=== PATIENT | female | born 2000 | race American Indian/Alaskan Native ===

== ENCOUNTER 2021-10-17 16:51 | Emergency (ER) | payer MEDICAID ==
[2021-10-17 19:16] LABS: Blood Urea Nitrogen 12 mg/dL (7-17); Calcium 9.1 mg/dL (8.4-10.2); Hemolysis Index 0
[2021-10-17 19:18] LABS: BUN/Creatinine Ratio 17
[2021-10-17 19:24] LABS: Amphetamine Screen,Urine Negative; Cannabinoid Screen,Urine Negative; Cocaine Screen,Urine Negative; Methadone Screen,Urine Negative; Opiate Screen,Urine Negative
[2021-10-17 19:41] LABS: Benzodiazepines Screen,Urine Positive
[2021-10-17 19:44] LABS: Basophils # (Auto) 0.1 K/mm3 (0.0-0.1); Eosinophils % (Auto) 0.1 % (0.0-4.3); Hematocrit 31.6 % (30.3-42.9); Hemoglobin 9.6 gm/dl (10.1-14.3); Lymphocytes # (Auto) 1.1 K/mm3 (1.2-5.4); Lymphocytes % (Auto) 14.4 % (13.4-35.0); Mean Corpuscular HGB Conc 30 % (30-34); Mean Corpuscular Volume 71 fl (79-97); Monocytes # (Auto) 0.2 K/mm3 (0.0-0.8); Monocytes % (Auto) 2.9 % (0.0-7.3); Platelet Count 473 K/mm3 (140-440); Red Blood Count 4.45 M/mm3 (3.65-5.03); Red Cell Distribution Width 18.5 % (13.2-15.2)
[2021-10-17 20:01] LABS: Bilirubin,Urine NEG (Negative); Blood,Urine NEG (Negative); Color,Urine Yellow (Yellow); Urobilinogen,Urine < 2.0 mg/dL (<2.0); WBC,Urine < 1.0 /HPF (0.0-6.0)
[2021-10-17 20:12] LABS: RBC,Urine < 1.0 /HPF (0.0-6.0)
--- NOTE | 2021-10-17 20:22 | Emergency Department Report ---
ED Psych HPI - General Chief Complaint: Psych Stated Complaint: PSYCH EVALUATION Time Seen by Provider: 10/17/21 18:07 Source: patient, EMS Mode of arrival: Stretcher - History of Present Illness Initial Comments: RESP DISTRESS AND REPORTS BEING 11 MONTHS . PSYCH EVALUATION MD Complaint: other (delusion ) -: Gradual, unknown Associated Psychiatric Symptoms: delusions History of same: No Quality: constant Worsens With: none - Related Data Allergies Allergy/AdvReac Type Severity Reaction Status Date / Time No Known Allergies Allergy Unverified 10/17/21 20:29 ED Review of Systems ROS: Stated complaint: PSYCH EVALUATION Other details as noted in HPI Constitutional: denies: chills, fever Eyes: denies: eye pain, eye discharge, vision change ENT: denies: ear pain, throat pain Respiratory: denies: cough, shortness of breath, wheezing Cardiovascular: denies: chest pain, palpitations Endocrine: no symptoms reported Gastrointestinal: denies: abdominal pain, nausea, diarrhea Genitourinary: denies: urgency, dysuria, discharge Musculoskeletal: denies: back pain, joint swelling, arthralgia Skin: denies: rash, lesions Neurological: denies: headache, weakness, paresthesias Psychiatric: denies: anxiety, depression Hematological/Lymphatic: denies: easy bleeding, easy bruising ED Past Medical Hx - Past Medical History Previous Medical History?: No Hx Hypertension: No ED Physical Exam - General Limitations: No Limitations General appearance: alert, anxious - Head Head exam: Present: atraumatic, normocephalic - Eye Eye exam: Present: normal appearance - ENT ENT exam: Present: mucous membranes moist - Neck Neck exam: Present: normal inspection - Respiratory Respiratory exam: Present: normal lung sounds bilaterally. Absent: respiratory distress - Cardiovascular Cardiovascular Exam: Present: regular rate, normal rhythm. Absent: systolic murmur, diastolic murmur, rubs, gallop - GI/Abdominal GI/Abdominal exam: Present: soft, normal bowel sounds - Extremities Exam Extremities exam: Present: normal inspection - Back Exam Back exam: Present: normal inspection - Neurological Exam Neurological exam: Present: alert, oriented X3 - Expanded Psychiatric Exam Expanded Focused psych exam: Present: delusional - Skin Skin exam: Present: warm, dry, intact, normal color. Absent: rash ED Course Vital Signs 10/17/21 10/17/21 10/17/21 16:54 21:01 21:05 Temperature 98 F 98.4 F Pulse Rate 94 H 112 H Respiratory 18 20 18 Rate Blood Pressure 123/84 126/87 [Left] O2 Sat by Pulse 98 100 100 Oximetry 10/18/21 10/19/21 10/19/21 20:12 02:27 11:15 Temperature 98.9 F 98.4 F 97.8 F Pulse Rate 105 H 90 90 Respiratory 18 18 18 Rate Blood Pressure 111/73 114/74 109/63 [Left] O2 Sat by Pulse 98 100 98 Oximetry 10/19/21 20:21 Temperature 98.6 F Pulse Rate 76 Respiratory 18 Rate Blood Pressure 120/68 [Left] O2 Sat by Pulse 98 Oximetry ED Medical Decision Making - Lab Data Result diagrams: 10/17/21 18:36 10/17/21 18:36 Critical care attestation.: If time is entered above; I have spent that time in minutes in the direct care of this critically ill patient, excluding procedure time. ED Disposition Clinical Impression: Delusions Disposition: [address] [place] [address] Is pt being admited?: No Does the pt Need Aspirin: No Condition: Stable Additional Instructions: Professional and Agency Contacts To help [facility] (31/03) [place] Crisis Line: Suicide Prevention Line: Crisis Text Line: Text START to 078616 Emergency: 911 Outpatient COMMUNITY Behavioral Health Resources: [place]: [facility] [address] [place], [place] [address] [facility] [address] [place] [address] Friday thru Friday - 8am - 5pm Call to schedule an assessment for mental health and substance abuse programs [facility] Address: [address] [place] [address] Friday thru Friday- 7am-2pm [facility] Address: [address] [place] [address] Friday thrfriday: 8:30AM-5PM Referrals: PRIMARY CAREMD [Primary Care Provider] - 3-5 Days
[2021-10-18 01:07] LABS: HCG Qualitative,Urine Negative (Negative)
--- NOTE | 2021-10-18 09:43 | Consultation ---
History of Present Illness - Reason for Consult Consult date: 10/18/21 Reason for consult: Mental health evaluation - History of Present Psychiatric Illness The patient is a 21 year old female with unknown psychiatric history who presents to the ED for mental health evaluation. In my encounter with the patient, she presents with disorganized thoughts, delusions and tangential. The patient reports that she is 12 months " I want a C- section today, I pee all day." She denies any current suicidal/homicidal ideation and denies hallucinations. PAST PSYCHIATRIC HISTORY Diagnoses: Denies Suicide attempts or Self-harm behavior: Denies Prior psychiatric hospitalizations: Denies Substance Abuse history: Denies Previous psychiatric medications tried: Denies Outpatient treatment: Denies PAST MEDICAL HISTORY: Family Psychiatric History: Not available SOCIAL HISTORY Marital Status: Single Living Arrangements: Lives with grandmother Employment Status:Unemployed Access to guns/weapons: None reported Education:12th History of Abuse: None reported Legal History: None reported REVIEW OF SYSTEMS Constitutional: Negative for weight loss ENT: Negative for stridor Respiratory: Negative for cough or hemoptysis All other systems reviewed and are negative MENTAL STATUS EXAMINATION General Appearance and Behavior: Age appropriate, good hygiene, wearing appropriate clothes, good eye contact, cooperative polite with questioning. Cooperation: Participating Psychomotor Behavior: Normal Mood: "ok" Affect and affective range: Incongruent with mood Thought Process: Tangential Thought Content: disorganized Speech: Normal volume, Regular rate and rhythm Intellectual Functioning: Average Suicidal Ideation: Denies Homicidal Ideation: Denies Hallucinations: Denies Impulse Control: Unimpaired Insight and Judgment: Limited insight and judgment Memory: Normal Attention: Divided Orientation: Alert, oriented Assessment and Plan (1) Delirium (2) Current Visit: Yes Status: Acute RECOMMENDATIONS 1013 continue home meds. Start Zyprexa 5mg po BID Risks, benefits and alternatives of medications discussed with the patient, questions answered and consent obtained from patient. PSYCHOTHERAPY: Supportive psychotherapy provided MEDICAL: Per primary team DELIRIUM PRECAUTIONS: Please re-orient patient frequently, keep lights on during the day, and minimize benzodiazepines and opiates as these medications could worsen patient's confusion. HEALTH INFORMATION MANAGEMENT DIRECTOR: Per medical team DISPOSITION: Recommend acute inpatient psychiatric hospitalization at this time. FOLLOW-UP: Will follow. Thank you for the consult. Please contact with any questions and/or concerns. Medications and Allergies Allergies Allergy/AdvReac Type Severity Reaction Status Date / Time No Known Allergies Allergy Unverified 10/17/21 20:29 Mental Status Exam - Vital signs Last Vital Signs Temp 98.4 F 10/17/21 21:05 Pulse 112 H 10/17/21 21:05 Resp 18 10/17/21 21:05 BP 126/87 10/17/21 21:05 Pulse Ox 100 10/17/21 21:05 Results Result Diagrams: 10/17/21 18:36 10/17/21 18:36 Abnormal lab results 10/17/21 10/17/21 10/17/21 Range/Units 18:36 18:36 18:36 Hgb 9.6 L (10.1-14.3) gm/dl MCV 71 L (79-97) fl MCH 22 L (28-32) pg RDW 18.5 H (13.2-15.2) % Plt Count 473 H (140-440) K/mm3 Lymph # (Auto) 1.1 L (1.2-5.4) K/mm3 Seg Neutrophils % 81.6 H (40.0-70.0) % Sodium 135 L (137-145) mmol/L Potassium 3.5 L (3.6-5.0) mmol/L Carbon Dioxide 20 L (22-30) mmol/L Glucose 102 H (65-100) mg/dL Salicylates < 0.3 L (2.8-20.0) mg/dL Acetaminophen (10.0-30.0) ug/mL 10/17/21 Range/Units 18:36 Hgb (10.1-14.3) gm/dl MCV (79-97) fl MCH (28-32) pg RDW (13.2-15.2) % Plt Count (140-440) K/mm3 Lymph # (Auto) (1.2-5.4) K/mm3 Seg Neutrophils % (40.0-70.0) % Sodium (137-145) mmol/L Potassium (3.6-5.0) mmol/L Carbon Dioxide (22-30) mmol/L Glucose (65-100) mg/dL Salicylates (2.8-20.0) mg/dL Acetaminophen 5.0 L (10.0-30.0) ug/mL All other labs normal.
--- NOTE | 2021-10-18 11:37 | Event Note ---
Awaiting placement by psychiatric team. Patient has a positive COVID-19 test without symptoms.
--- NOTE | 2021-10-19 09:33 | Progress Note ---
Subjective - Reason for Consult Consult date: 10/19/21 Reason for consult: Delusional - Chief Complaint Chief complaint: The patient was seen today. She is calm, and cooperative. She says she came to the hospital because she suffers from anxiety and asthma. She says "I couldn't catch my breath mainly from anxiety but my asthma has been flaring up too." She says "I couldn't calm myself down." The patient says "I'm also 7 months and I need to have a today." The patient denies SI/HI or hallucinations of any kind. She says "can I have a room upstairs to have my baby?" REVIEW OF SYSTEMS Constitutional: Negative for weight loss ENT: Negative for stridor Respiratory: Negative for cough or hemoptysis All other systems reviewed and are negative MENTAL STATUS EXAMINATION General Appearance and Behavior: Age appropriate, good hygiene, wearing appropriate clothes, good eye contact, cooperative polite with questioning. Cooperation: Participating Psychomotor Behavior: Normal Mood: "ok" Affect and affective range: Incongruent with mood Thought Process: illogical Thought Content: delusions Speech: Normal volume, Regular rate and rhythm Intellectual Functioning: Average Suicidal Ideation: Denies Homicidal Ideation: Denies Hallucinations: Denies Impulse Control: Unimpaired Insight and Judgment: Limited insight and judgment Memory:Limited Attention: Divided Orientation: Alert, oriented Assessment and Plan (1) Delusional Disorder (2) Generalized Anxiety Disorder RECOMMENDATIONS 1013 Increase Olanzapine 7.5mg po BID Start Vistaril 25mg po BID Risks, benefits and alternatives of medications discussed with the patient, questions answered and consent obtained from patient. PSYCHOTHERAPY: Supportive psychotherapy provided MEDICAL: Per primary team DELIRIUM PRECAUTIONS: Please re-orient patient frequently, keep lights on during the day, and minimize benzodiazepines and opiates as these medications could worsen patient's confusion. CUSTOMER ACQUISITION MANAGER: Per medical team DISPOSITION: Recommend acute inpatient psychiatric hospitalization at this time. FOLLOW-UP: Will follow. Thank you for the consult. Please contact with any questions and/or concerns. Mental Status Exam - Vital signs Last Vital Signs Temp 98.4 F 10/19/21 02:27 Pulse 90 10/19/21 02:27 Resp 18 10/19/21 02:27 BP 114/74 10/19/21 02:27 Pulse Ox 100 10/19/21 02:27
[2021-10-19] MEDS: hydrOXYzine PAMOATE 25 MG CAP PO SCH (12:50)
--- NOTE | 2021-10-19 14:48 | Event Note ---
Date: 10/19/21 S: No events reported overnight Vital Signs - 8 hr 10/19/21 11:15 Temperature 97.8 F Pulse Rate 90 Respiratory 18 Rate Blood Pressure 109/63 [Left] O2 Sat by Pulse 98 Oximetry O: Delusional disorder, general anxiety disorder, Covid positive P: Awaiting inpatient psych placement
--- NOTE | 2021-10-20 11:01 | Progress Note ---
Subjective - Reason for Consult Consult date: 10/20/21 Reason for consult: delusional - Chief Complaint Chief complaint: The patient was seen today. She is cooperative. She is upset and asking to go home. The patient denies SI/HI or hallucinations. She does states she is . She says "I'm safe with my grandma." Staff states the patient has been walking around moaning, and holding her back like she's in labor, and asking for an epidural. REVIEW OF SYSTEMS Constitutional: Negative for weight loss ENT: Negative for stridor Respiratory: Negative for cough or hemoptysis All other systems reviewed and are negative MENTAL STATUS EXAMINATION General Appearance and Behavior: Age appropriate, good hygiene, wearing appropriate clothes, good eye contact, cooperative polite with questioning. Cooperation: Participating Psychomotor Behavior: Normal Mood: "ok" Affect and affective range: Incongruent with mood Thought Process: illogical Thought Content: delusions Speech: Normal volume, Regular rate and rhythm Intellectual Functioning: Average Suicidal Ideation: Denies Homicidal Ideation: Denies Hallucinations: Denies Impulse Control: Unimpaired Insight and Judgment: Limited insight and judgment Memory:Limited Attention: Divided Orientation: Alert, oriented Assessment and Plan (1) Delusional Disorder (2) Generalized Anxiety Disorder RECOMMENDATIONS 1013 Increase Olanzapine 10mg po BID Increased Vistaril 50mg po BID Risks, benefits and alternatives of medications discussed with the patient, questions answered and consent obtained from patient. PSYCHOTHERAPY: Supportive psychotherapy provided MEDICAL: Per primary team DELIRIUM PRECAUTIONS: Please re-orient patient frequently, keep lights on during the day, and minimize benzodiazepines and opiates as these medications could worsen patient's confusion. PIPELINE WELDER: Per medical team DISPOSITION: Recommend acute inpatient psychiatric hospitalization at this time. FOLLOW-UP: Will follow. Thank you for the consult. Please contact with any questions and/or concerns. Mental Status Exam - Vital signs Last Vital Signs Temp 98.6 F 10/19/21 20:21 Pulse 76 10/19/21 20:21 Resp 18 10/19/21 20:21 BP 120/68 10/19/21 20:21 Pulse Ox 98 10/19/21 20:21
[2021-10-20] MEDS: hydrOXYzine PAMOATE 25 MG CAP PO SCH (11:16)
--- NOTE | 2021-10-20 11:26 | Event Note ---
Date: 10/20/21 vss , no dstress , still disorganised thinking , assesses by [facility] , continue 1013 and continue meds
[2021-10-20] MEDS ORDERED: hydrOXYzine PAMOATE 25 MG CAP PO SCH (12:00)
[2021-10-21 09:13] VITALS: BP 131/89
--- NOTE | 2021-10-21 11:41 | Event Note ---
Date: 10/21/21 more stable today , denies any SI or HI requets to go home awaiting plcament vss , labs unremarkable
== END 2021-10-22 18:50 ==
LOC: ED 16:51 → EEVIPCON 16:51 → ED 10-20 18:52
DX: O99.511 Diseases of the respiratory system complicating pregnancy, first trimester (principal); Z3A.11 11 weeks gestation of pregnancy; Z20.822 Contact with and (suspected) exposure to COVID-19; Z79.899 Other long term (current) drug therapy
CPT/HCPCS: 80048; 80307; 81001; 81025; 85025; 99285; U0003; 80320; 99284; G0480

== ENCOUNTER 2021-10-20 20:08 | Emergency (ER) | payer MEDICAID ==
--- NOTE | 2021-10-21 09:38 | Progress Note ---
Subjective - Reason for Consult Consult date: 10/21/21 Reason for consult: delusional - Chief Complaint Chief complaint: The patient was seen today. She is irritable. She says she's not doing too well. When asked why, she says "I'm trapped in this room." The patient denies SI/HI or hallucinations, but still has some disorganized thoughts. The nurse says the patient was very disorganized this morning. REVIEW OF SYSTEMS Constitutional: Negative for weight loss ENT: Negative for stridor Respiratory: Negative for cough or hemoptysis All other systems reviewed and are negative MENTAL STATUS EXAMINATION General Appearance and Behavior: Age appropriate, good hygiene, wearing appropriate clothes, good eye contact, cooperative polite with questioning. Cooperation: Participating Psychomotor Behavior: Normal Mood: "ok" Affect and affective range: Incongruent with mood Thought Process: illogical Thought Content: delusions Speech: Normal volume, Regular rate and rhythm Intellectual Functioning: Average Suicidal Ideation: Denies Homicidal Ideation: Denies Hallucinations: Denies Impulse Control: Unimpaired Insight and Judgment: Limited insight and judgment Memory:Limited Attention: Divided Orientation: Alert, oriented Assessment and Plan (1) Delusional Disorder (2) Generalized Anxiety Disorder RECOMMENDATIONS 1013 Olanzapine 10mg po BID Vistaril 50mg po BID Start Prozac 10mg po daily Risks, benefits and alternatives of medications discussed with the patient, questions answered and consent obtained from patient. PSYCHOTHERAPY: Supportive psychotherapy provided MEDICAL: Per primary team DELIRIUM PRECAUTIONS: Please re-orient patient frequently, keep lights on during the day, and minimize benzodiazepines and opiates as these medications could worsen patient's confusion. MANAGER CORPORATE: Per medical team DISPOSITION: Recommend acute inpatient psychiatric hospitalization at this time. FOLLOW-UP: Will follow. Thank you for the consult. Please contact with any questions and/or concerns. Mental Status Exam - Vital signs Last Vital Signs Temp 98.3 F 10/21/21 08:10 Pulse 100 H 10/21/21 08:10 Resp 14 10/21/21 08:10 BP 131/89 10/21/21 08:10 Pulse Ox 99 10/21/21 08:23
[2021-10-21] MEDS: FLUoxetine 10 MG TAB PO SCH (11:03)
[2021-10-22] MEDS ORDERED: ALBUTEROL 2.5 MG/3 ML NEBU IH ONE (03:03)
[2021-10-22] MEDS ORDERED: IPRATROPIUM 0.02% NEBU 2.5 ML IH ONE (03:03)
--- NOTE | 2021-10-22 03:05 | Emergency Department Report ---
Blank Doc - Documentation Documentation: I was called to the room secondary to difficulty breathing. Patient states that she has asthma and was having shortness of breath. She had 2-3 word dyspnea. There was audible wheezing on exam. DuoNeb was ordered. [id number]-I was called to the room as the patient states that she feels like her chest is getting tighter. She is hyperventilating. O2 saturations are 100% on the breathing treatment. She actually has improved air movement. Vistaril was ordered. 0545-after treatments, patient was no longer wheezing. She was no longer anxious after the Vistaril. We are still awaiting psychiatric disposition.
[2021-10-22] MEDS ORDERED: hydrOXYzine HCL 100 MG/2 ML INJ IM ONE (03:35)
[2021-10-22] MEDS: FLUoxetine 10 MG TAB PO SCH (10:04)
--- NOTE | 2021-10-22 11:57 | Progress Note ---
Subjective - Reason for Consult Consult date: 10/22/21 Reason for consult: delusional - Chief Complaint Chief complaint: The patient was seen today. She is calm and cooperative. She says she's doing good. The patient says "I feel better. But my anxiety and asthma get the best of me." I ask the patient about her believing she was , the patient says "I don't feel that way. I just want my anxiety to get better." The patient denies SI/HI or hallucinations of any kind. REVIEW OF SYSTEMS Constitutional: Negative for weight loss ENT: Negative for stridor Respiratory: Negative for cough or hemoptysis All other systems reviewed and are negative MENTAL STATUS EXAMINATION General Appearance and Behavior: Age appropriate, good hygiene, wearing appropriate clothes, good eye contact, cooperative polite with questioning. Cooperation: Participating Psychomotor Behavior: Normal Mood: "good" Affect and affective range: congruent with mood Thought Process: goal directed Thought Content: None Speech: Normal volume, Regular rate and rhythm Intellectual Functioning: Average Suicidal Ideation: Denies Homicidal Ideation: Denies Hallucinations: Denies Impulse Control: Unimpaired Insight and Judgment: Limited insight and judgment Memory:Limited Attention: Divided Orientation: Alert, oriented Assessment and Plan (1) Delusional Disorder (2) Generalized Anxiety Disorder RECOMMENDATIONS d/c 1013 Olanzapine 10mg po BID Vistaril 50mg po BID Prozac 10mg po daily Risks, benefits and alternatives of medications discussed with the patient, questions answered and consent obtained from patient. PSYCHOTHERAPY: Supportive psychotherapy provided MEDICAL: Per primary team DELIRIUM PRECAUTIONS: Please re-orient patient frequently, keep lights on during the day, and minimize benzodiazepines and opiates as these medications could worsen patient's confusion. ELECTRON GUN INSPECTOR: Per medical team DISPOSITION: Recommend acute inpatient psychiatric hospitalization at this time. The patient is now stable enough to be managed from an outpatient basis. The equity director to provide the patient with all necessary outpatient resources. The equity director to further discuss safety plan The patient to follow up with outpatient psych in 7 to 14 days upon discharge FOLLOW-UP: sign off Thank you for the consult. Please contact with any questions and/or concerns. Case staffed with Dr. Lira Mental Status Exam - Vital signs Last Vital Signs Temp 99.0 F 10/21/21 22:23 Pulse 130 H 10/22/21 03:23 Resp 20 10/22/21 03:23 BP 119/77 10/21/21 22:23 Pulse Ox 100 10/22/21 07:00
--- NOTE | 2021-10-22 15:40 | Event Note ---
Date: 10/22/21 Patient has been evaluated by our psychiatric team and advised to discharge patient home and follow-up as an outpatient. Patient denied any suicidal homicidal ideation. No visual or auditory hallucination. Patient is medically and psychiatrically stable for discharge.
[2021-10-22 16:29] VITALS: BP 118/78
== END 2021-10-22 16:25 | disposition home or self-care (01) ==
LOC: ED 20:08
DX: F22 Delusional disorders (principal); R06.02 Shortness of breath; F41.9 Anxiety disorder, unspecified; R06.2 Wheezing
CPT/HCPCS: 94644; 99284; J3410; Q0177; 99283

== ENCOUNTER 2021-10-30 07:20 | Emergency (ER) | payer MEDICAID ==
[2021-10-30 07:24] VITALS: BP 124/84
[2021-10-30] MEDS ORDERED: hydrOXYzine PAMOATE 25 MG CAP PO ONE (07:53)
--- NOTE | 2021-10-30 07:58 | Emergency Department Report ---
ED General Adult HPI - General Chief complaint: Psych Stated complaint: ANXIETY/PSYCH PUI?: No Time Seen by Provider: 10/30/21 07:44 Source: patient, EMS ( EMS documentation not available at time of chart dictation ), RN notes reviewed, old records reviewed Mode of arrival: Ambulatory Limitations: No Limitations - History of Present Illness Initial comments: The patient was evaluated in the emergency department for symptoms described in the history of present illness. He/she was evaluated in the context of the global COVID-19 pandemic, which necessitated consideration that the patient might be at risk for infection with the virus that causes COVID-19. Institutional protocols and algorithms that pertain to the evaluation of patients at risk for COVID-19 are in a state of rapid change based on information released by regulatory bodies including the CDC and federal and state organizations. These policies and algorithms were followed during the patient's care in the emergency department. Please note that these policies, procedures and recommendations changed on a rapid basis. Chief complaint: My anxiety and my wheezing The patient is a 21-year-old female, who presents to the ER today with a complaint of feeling like she is wheezing, and sensation of anxiety. She denies physical pain. She denies homicidality and suicidality. She denies overdose. She denies hallucinations, access to guns or firearms. She reports that she is not . She reports that she graduated from high school, lives at home with family, and does not work currently. She reports that she is from [place]. She denies loss of taste and smell. She denies physical pain at this time. - Related Data Previous Rx's Medication Instructions Recorded Last Taken Type FLUoxetine [PROzac] 10 mg PO QDAY #30 tablet 10/22/21 Unknown Rx OLANZapine [Olanzapine] 10 mg PO BID #60 10/22/21 Unknown Rx hydrOXYzine PAMOATE [Vistaril] 50 mg PO BID PRN #60 capsule 10/22/21 Unknown Rx Albuterol Sulfate [Proair 90 mcg IH Q4HR PRN #2 aer.pow.ba 10/30/21 Unknown Rx Respiclick] Allergies Allergy/AdvReac Type Severity Reaction Status Date / Time No Known Allergies Allergy Verified 10/30/21 07:24 ED Review of Systems ROS: Stated complaint: ANXIETY/PSYCH Other details as noted in HPI Constitutional: denies: fever Respiratory: cough Cardiovascular: denies: chest pain Gastrointestinal: denies: abdominal pain Musculoskeletal: denies: back pain Neurological: denies: weakness Psychiatric: anxiety. denies: auditory hallucinations, visual hallucinations, homicidal thoughts, suicidal thoughts ED Past Medical Hx - Past Medical History Hx Hypertension: No - Social History Smoking Status: Unknown if ever smoked - Medications Home Medications: Home Medications Medication Instructions Recorded Confirmed Last Taken Type FLUoxetine [PROzac] 10 mg PO QDAY #30 tablet 10/22/21 Unknown Rx OLANZapine [Olanzapine] 10 mg PO BID #60 10/22/21 Unknown Rx hydrOXYzine PAMOATE [Vistaril] 50 mg PO BID PRN #60 capsule 10/22/21 Unknown Rx Albuterol Sulfate [Proair 90 mcg IH Q4HR PRN #2 aer.pow.ba 10/30/21 Unknown Rx Respiclick] ED Physical Exam - General Limitations: No Limitations General appearance: alert, anxious - Head Head exam: Present: atraumatic, normocephalic - Eye Eye exam: Present: normal appearance, EOMI. Absent: nystagmus - ENT ENT exam: Present: normal exam, normal orophraynx, mucous membranes moist, normal external ear exam - Neck Neck exam: Present: normal inspection, full ROM. Absent: tenderness, meningismus - Respiratory Respiratory exam: Present: normal lung sounds bilaterally. Absent: respiratory distress, wheezes, rales, rhonchi, stridor, decreased breath sounds - Cardiovascular Cardiovascular Exam: Present: normal rhythm, tachycardia, normal heart sounds. Absent: bradycardia, irregular rhythm, systolic murmur, diastolic murmur, rubs, gallop - GI/Abdominal GI/Abdominal exam: Present: soft. Absent: distended, tenderness, guarding, rebound, rigid, pulsatile mass - Extremities Exam Extremities exam: Present: normal inspection, full ROM, other (2+ pulses noted in the bilateral upper and lower extremities. There is no palpable cord. negative Homans sign. Muscular compartments are soft. The pelvis is stable.). Absent: pedal edema, calf tenderness - Back Exam Back exam: Present: normal inspection, full ROM. Absent: tenderness, CVA tenderness (R), CVA tenderness (L), paraspinal tenderness, vertebral tenderness - Neurological Exam Neurological exam: Present: alert, oriented X3, normal gait, other (No facial droop. Tongue midline. Extraocular movements intact bilaterally. Facial sensation intact to light touch in V1, V2, V3 distribution bilaterally. 5 and a 5 strength in 4 extremities. Sensation intact to light touch in 4 extremities.). Absent: motor sensory deficit - Psychiatric Psychiatric exam: Present: anxious. Absent: homicidal ideation, suicidal ideation - Skin Skin exam: Present: warm, dry, intact, normal color. Absent: rash ED Course Vital Signs 10/30/21 07:21 Temperature 98.4 F Pulse Rate 104 H Respiratory 16 Rate Blood Pressure 124/84 [Left] O2 Sat by Pulse 99 Oximetry ED Medical Decision Making - Lab Data Vital Signs 10/30/21 07:21 Temperature 98.4 F Pulse Rate 104 H Respiratory 16 Rate Blood Pressure 124/84 [Left] O2 Sat by Pulse 99 Oximetry - Medical Decision Making Differential diagnosis, including but not limited to: Encounter for medical screening examination, encounter for behavioral health screening examination, anxiety Assessment and plan: 21-year-old female, who was afebrile, with reassuring vital signs, with improving tachycardia, who is clinically sober, with a GCS of 15, who presents to the ER today with a complaint of anxiety. She is not wheezing at this time. She is not tachypneic or hypoxic. Thromboembolic disease/DVT/PE very unlikely She is also not hypoxic at this time She does not meet criteria for 1013 hold or involuntary confinement at this time She is awake, alert, oriented, sober, ambulatory with a steady gait, and exhibits decision-making capacity. As needed albuterol, outpatient follow-up Critical care attestation.: If time is entered above; I have spent that time in minutes in the direct care of this critically ill patient, excluding procedure time. ED Disposition Clinical Impression: Encounter for medical screening examination, Encounter for behavioral health screening, History of anxiety Disposition: 01 HOME / SELF CARE / HOMELESS Is pt being admited?: No Does the pt Need Aspirin: No Condition: Good Additional Instructions: Follow-upPlease follow-up with an outpatient primary care doctor within the next month. Please follow-up with an outpatient infectious disease specialist or health department for continued outpatient HIV care. Use the albuterol as needed. With an outpatient mental health specialist or therapist within the next month. Please return to the emergency room right away with new pain, worsened pain, migration of pain, projectile vomiting, change in mental status, confusion, inability tolerate liquid feeds, new, worsened or different symptoms not present on the initial emergency room evaluation Please continue current outpatient medications [facility] - [facility]5 Days [facility] [Provider Group] - 3-5 Days [facility] [Provider [facility]] - 3-5 Days
== END 2021-10-30 09:04 | disposition home or self-care (01) ==
LOC: ED 07:20
DX: F41.9 Anxiety disorder, unspecified (principal); R06.2 Wheezing; Z13.30 Encounter for screening examination for mental health and behavioral disorders, unspecified
CPT/HCPCS: 36415; 71275; 80048; 80320; 84484; 84702; 85027; 85379; 85610; 93005; 93010; 99284; G0480; J2060; J7120; Q9967

== ENCOUNTER 2021-10-30 09:32 | Emergency (ER) | payer MEDICAID ==
[2021-10-30] MEDS ORDERED: ALBUTEROL 2.5 MG/3 ML NEBU IH ONE (09:52)
--- NOTE | 2021-10-30 10:04 | Emergency Department Report ---
ED General Adult HPI - General Chief complaint: Dyspnea/Respdistress Stated complaint: DORINDA PUI?: Yes Time Seen by Provider: 10/30/21 09:49 Source: patient, RN notes reviewed, old records reviewed Mode of arrival: Ambulatory Limitations: No Limitations - History of Present Illness Initial comments: The patient was evaluated in the emergency department for symptoms described in the history of present illness. He/she was evaluated in the context of the global COVID-19 pandemic, which necessitated consideration that the patient might be at risk for infection with the virus that causes COVID-19. Institutional protocols and algorithms that pertain to the evaluation of patients at risk for COVID-19 are in a state of rapid change based on information released by regulatory bodies including the CDC and federal and state organizations. These policies and algorithms were followed during the patient's care in the emergency department. Please note that these policies, procedures and recommendations changed on a rapid basis. This is a 21-year-old female. I saw her earlier on today. She had a unremarkable physical exam, and was discharged. She reregistered today with a complaint of persistent anxiety, shortness of breath, and is now endorsing chest tightness. She is not homicidal or suicidal. She was diagnosed with COVID-19 earlier on this month. She did not get her medications filled. She was not wheezing during my initial ER evaluation. During the subsequent evaluation, the patient is speaking in full sentences, however, she has had transmitted upper airway sounds. She endorses chest tightness and persistent anxiety. -: Sudden Location: chest Consistency: constant Improves with: none Worsens with: none - Related Data Previous Rx's Medication Instructions Recorded Last Taken Type FLUoxetine [PROzac] 10 mg PO QDAY #30 tablet 10/22/21 Unknown Rx OLANZapine [Olanzapine] 10 mg PO BID #60 10/22/21 Unknown Rx hydrOXYzine PAMOATE [Vistaril] 50 mg PO BID PRN #60 capsule 10/22/21 Unknown Rx Albuterol Sulfate [Proair 90 mcg IH Q4HR PRN #2 aer.pow.ba 10/30/21 Unknown Rx Respiclick] Allergies Allergy/AdvReac Type Severity Reaction Status Date / Time No Known Allergies Allergy Verified 10/30/21 07:24 ED Review of Systems ROS: Stated complaint: DORINDA Other details as noted in HPI Constitutional: denies: diaphoresis ENT: congestion Respiratory: cough, shortness of breath Cardiovascular: other (Chest tightness and pressure) Gastrointestinal: denies: abdominal pain Psychiatric: anxiety ED Past Medical Hx - Past Medical History Hx Hypertension: No - Social History Smoking Status: Unknown if ever smoked - Medications Home Medications: Home Medications Medication Instructions Recorded Confirmed Last Taken Type FLUoxetine [PROzac] 10 mg PO QDAY #30 tablet 10/22/21 Unknown Rx OLANZapine [Olanzapine] 10 mg PO BID #60 10/22/21 Unknown Rx hydrOXYzine PAMOATE [Vistaril] 50 mg PO BID PRN #60 capsule 10/22/21 Unknown Rx Albuterol Sulfate [Proair 90 mcg IH Q4HR PRN #2 aer.pow.ba 10/30/21 Unknown Rx Respiclick] ED Physical Exam - General General appearance: alert, anxious - Head Head exam: Present: atraumatic, normocephalic - Eye Eye exam: Present: normal appearance, EOMI. Absent: nystagmus - ENT ENT exam: Present: normal exam, normal orophraynx, mucous membranes moist, normal external ear exam - Neck Neck exam: Present: normal inspection, full ROM. Absent: tenderness, meningismus - Respiratory Respiratory exam: Present: wheezes (Transmitted upper airway sounds noted bilateral), accessory muscle use, decreased breath sounds. Absent: rales, rhonchi, stridor - Cardiovascular Cardiovascular Exam: Present: regular rate, normal rhythm, tachycardia, normal heart sounds. Absent: bradycardia, irregular rhythm, systolic murmur, diastolic murmur, rubs, gallop - GI/Abdominal GI/Abdominal exam: Present: soft. Absent: distended, tenderness, guarding, rebound, rigid, pulsatile mass - Extremities Exam Extremities exam: Present: normal inspection, full ROM, other (2+ pulses noted in the bilateral upper and lower extremities. There is no palpable cord. negative Homans sign. Muscular compartments are soft. The pelvis is stable.). Absent: pedal edema, calf tenderness - Back Exam Back exam: Present: normal inspection, full ROM. Absent: tenderness, CVA tenderness (R), CVA tenderness (L), paraspinal tenderness, vertebral tenderness - Neurological Exam Neurological exam: Present: alert, normal gait, other (No facial droop. Tongue midline. Extraocular movements intact bilaterally. Facial sensation intact to light touch in V1, V2, V3 distribution bilaterally. 5 and a 5 strength in 4 extremities. Sensation intact to light touch in 4 extremities.). Absent: motor sensory deficit - Psychiatric Psychiatric exam: Present: anxious - Skin Skin exam: Present: warm, dry, intact, normal color. Absent: rash ED Course Vital Signs 10/30/21 10/30/21 09:48 12:41 Temperature 98 F 97.6 F Pulse Rate 148 H 89 Respiratory 16 18 Rate Blood Pressure 116/68 132/78 [Left] O2 Sat by Pulse 96 98 Oximetry - Reevaluation(s) Reevaluation #1: 10/30/21 10:02 Differential diagnosis, including but not limited to: Anxiety, reactive airways disease, transmitted upper airway sounds, COVID-19, pneumonia, pulmonary embolism Assessment and plan: 21-year-old female, who is afebrile with reassuring vital signs with exception of tachycardia, who presents with persistent complaints of shortness of breath, chest tightness, and wheezing. When distracted, her tachypnea stops, she is speaking in full sentences, she is not stridulous, and she is in no acute respiratory distress. During pulmonary examination, patient noted to take insufficient respiratory effort, and then exhale through her upper airway, and this appears to be transmitted upper airway sounds. When I initially evaluated this patient, her lung sounds were clear, she had minimal tachycardia, as she was in no acute distress. I suspect that this is an anxiety/conversion reaction. The patient does not meet criteria for 1013 hold or involuntary hold at this time. However, we will treat her with Ativan, albuterol, obtain appropriate laboratory studies, x-ray the chest as well as D-dimer. However, I find this patient to be low risk by Wells criteria for pulmonary embolism. I also finds patient to be low pretest probability for pulmonary embolism. Presuming unremarkable EKG and troponin, patient low risk for major adverse cardiac event as per heart score. 10/30/21 13:00 Patient noted to be conversing multiple times with multiple staff members, without difficulty, or any acute distress. D-dimer was elevated, CT scan of the chest obtained, and negative for acute findings. Heart rate 105 to 110 bpm at this time. This is likely secondary to albuterol and underlying anxiety. Patient remains awake, alert, oriented, conversant and in no acute distress at this time. No transmitted upper airway sounds are appreciated, patient is not wheezing at this time. She may be discharged as per my initial plan. ED Medical Decision Making - Lab Data Result diagrams: 10/30/21 09:58 10/30/21 09:58 Vital Signs 10/30/21 09:48 Temperature 98 F Pulse Rate 148 H Respiratory 16 Rate Blood Pressure 116/68 [Left] O2 Sat by Pulse 96 Oximetry Lab Results 10/30/21 10/30/21 Range/Units 09:58 09:58 WBC 7.1 (4.5-11.0) K/mm3 RBC 4.10 (3.65-5.03) M/mm3 Hgb 9.4 L (10.1-14.3) gm/dl Hct 29.2 L (30.3-42.9) % MCV 71 L (79-97) fl MCH 23 L (28-32) pg MCHC 32 (30-34) % RDW 19.1 H (13.2-15.2) % Plt Count 231 (140-440) K/mm3 PT 12.5 (12.2-14.9) Sec. INR 0.84 L (0.87-1.13) D-Dimer 331.86 H (0-234) ng/mlDDU - EKG Data -: EKG Interpreted by Id EKG shows normal: sinus rhythm Rate: tachycardia - EKG Data 10/30/21 10:52 The EKG is interpreted at 10: 3 3 AM Sinus tachycardia, rate 117 bpm. Normal axis, normal intervals, normal P wave axis, and motion artifact. Abnormal EKG. Not a STEMI - Radiology Data Radiology results: pending, report reviewed, image reviewed CTA CHEST WITH CONTRAST INDICATION / CLINICAL INFORMATION: Acute dyspnea and chest pain; hx of COVID. TECHNIQUE: Axial CT images were obtained through the chest after injection of 100 cc Omnipaque 350 IV contrast. 3 plane MIP and/or 3D reconstructions were produced. All CT scans at this location are performed using CT dose reduction for ALARA by means of automated exposure control. COMPARISON: None available. FINDINGS: PULMONARY ARTERIES: Adequate opacification bilaterally without intraluminal filling defect to suggest acute PTE. Suboptimal evaluation of subsegmental vessels in both lower lung zones due to respiratory motion. THORACIC AORTA: No significant abnormality. HEART: No significant abnormality. CORONARY ARTERY CALCIFICATION: None. MEDIASTINUM / JIHAN: No significant abnormality. PLEURA: No pleural effusion. No pneumothorax. LUNGS: No acute air space or interstitial disease. ADDITIONAL FINDINGS: None. UPPER ABDOMEN: No acute findings. SKELETAL STRUCTURES: No significant osseous abnormality. IMPRESSION: 1. No CT evidence for pulmonary embolism. 2. No acute findings. Signer Name: German Joiner MD Signed: 10/30/2021 11:21 AM Workstation Name: [id number] Critical care attestation.: If time is entered above; I have spent that time in minutes in the direct care of this critically ill patient, excluding procedure time. ED Disposition Clinical Impression: Encounter for medical screening examination, Encounter for behavioral health screening, History of anxiety, Dyspnea, Chest tightness Disposition: 01 HOME / SELF CARE / HOMELESS Is pt being admited?: No Does the pt Need Aspirin: No Condition: Good Additional Instructions: Please continue albuterol prescription that was recently prescribed for the patient. Do not take metformin medication for the next 2 days, if patient takes this medication. Follow-up with a primary care doctor within the next week. Follow-up with a psychiatrist and mental health specialist within the next month. Advance diet as tolerated. Drink plenty of fluids. [facility] with new pain, worsened pain, migration of pain, projectile vomiting, change in mental status, confusion, inability tolerate liquid feeds, new, worsened or different symptoms not present on the initial emergency room evaluation Prescriptions: Albuterol Sulfate [Proair Respiclick] 90 mcg IH Q4HR PRN #2 aer.pow.ba PRN Reason: Wheezing Referrals: [facility] [Provider Group] - 3-5 Days [facility] [Outside] - 3-[address] [facility] [Outside] - 3-5 Days
[2021-10-30] MEDS: LORazepam 2 MG/ML VIAL IM STA ×2 (10:11→10:12)
[2021-10-30 10:23] LABS: Hematocrit 29.2 % (30.3-42.9); Hemoglobin 9.4 gm/dl (10.1-14.3); Mean Corpuscular HGB Conc 32 % (30-34); Mean Corpuscular Volume 71 fl (79-97); Red Cell Distribution Width 19.1 % (13.2-15.2)
[2021-10-30 10:24] LABS: Platelet Count 231 K/mm3 (140-440)
[2021-10-30 10:30] LABS: INR 0.84 (0.87-1.13)
[2021-10-30] MEDS ORDERED: LACTATED RINGERS 1,000 ML IV ONE (10:51)
--- NOTE | 2021-10-30 10:55 | Electrocardiograph Report ---
[facility] Test Date: 2021-10-30 Test Time: 10:33:10 Pat Name: BRENDA FREIRE Department: Room: Gender: F Regional Operations Manager: ALONZO : 2000 Requested By: LETICIA CHEN Order Number: [id number] Reading MD: Austyn Webb Measurements Intervals Spencer Rate: 117 P: 71 [place]: 181 QRS: 23 QRSD: 86 T: -90 QT: 295 QTc: 411 Interpretive Statements Sinus tachycardia Repol abnrm suggests ischemia, inferolateral leads No previous ECG available for comparisonjavascript:perform('study_confirm'); Electronically Signed On 10-30-2021 10:55:22 EST by Austyn Webb
[2021-10-30 10:57] LABS: Blood Urea Nitrogen 11 mg/dL (7-17); Calcium 9.4 mg/dL (8.4-10.2); Hemolysis Index 8
[2021-10-30] MEDS ORDERED: POTASSIUM CHLORIDE ER 20 MEQ TAB PO ONE (11:09)
[2021-10-30 11:10] LABS: BUN/Creatinine Ratio 18
--- NOTE | 2021-10-30 12:26 | Cat Scan Report ---
CTA CHEST WITH CONTRAST INDICATION / CLINICAL INFORMATION: Acute dyspnea and chest pain; hx of COVID. TECHNIQUE: Axial CT images were obtained through the chest after injection of 100 cc Omnipaque 350 IV contrast. 3 plane MIP and/or 3D reconstructions were produced. All CT scans at this location are per formed using CT dose reduction for ALARA by means of automated exposure control. COMPARISON: None available. FINDINGS: PULMONARY ARTERIES: Adequate opacification bilaterally without intraluminal filling defect to suggest acute PTE. Suboptimal evaluation of subsegmental vessels in both lower lung zones due to respiratory motion. THORACIC AORTA: No significant abnormality. HEART: No significant abnormality. CORONARY ARTERY CALCIFICATION: None. MEDIASTINUM / JIHAN: No significant abnormality. PLEURA: No pleural effusion. No pneumothorax. LUNGS: No acute air space or interstitial disease. ADDITIONAL FINDINGS: None. UPPER ABDOMEN: No acute findings. SKELETAL STRUCTURES: No significant osseous abnormality. IMPRESSION: 1. No CT evidence for pulmonary embolism. 2. No acute findings. Signer Name: German Joiner MD Signed: 10/30/2021 12:21 PM Workstation Name: [id number]
[2021-10-30 16:19] VITALS: BP 127/89
== END 2021-10-30 16:52 | disposition home or self-care (01) ==
LOC: ED 09:32
DX: R07.9 Chest pain, unspecified (principal); R06.00 Dyspnea, unspecified; F41.9 Anxiety disorder, unspecified; Z13.30 Encounter for screening examination for mental health and behavioral disorders, unspecified
CPT/HCPCS: 36415; 71275; 80048; 80320; 84484; 84702; 85027; 85379; 85610; 93005; 93010; 99284; G0480; J2060; J7120; Q9967

== ENCOUNTER 2021-11-30 13:22 | Inpatient (IN) | payer MEDICAID ==
[2021-11-30] MEDS ORDERED: ALBUTEROL 2.5 MG/3 ML NEBU IH ONE (13:40)
[2021-11-30] MEDS ORDERED: dexAMETHasone 20 MG/5 ML VIAL IV ONE (13:40)
[2021-11-30] MEDS ORDERED: IPRATROPIUM 0.02% NEBU 2.5 ML IH ONE (13:40)
[2021-11-30] MEDS ORDERED: MAGNESIUM SULFATE 2 GM/50 ML BAG IV ONE (13:44)
--- NOTE | 2021-11-30 14:41 | Emergency Department Report ---
ED General Adult HPI - General Chief complaint: Adult Asthma Stated complaint: ASTHMA Time Seen by Provider: 11/30/21 13:39 Source: patient, EMS Mode of arrival: Stretcher Limitations: No Limitations - History of Present Illness Initial comments: Patient presents to the emergency department chief complaint of shortness of breath. Patient states she is having asthma attack. Patient dates been present for the last 2 days. Patient states that she has a pet at home has carpet. She denies any chest pain, abdominal pain, or headache. -: Gradual Severity scale (0 -10): 0 Consistency: constant Improves with: none Worsens with: none Associated Symptoms: denies other symptoms Treatments Prior to Arrival: none - Related Data Previous Rx's Medication Instructions Recorded Last Taken Type FLUoxetine [PROzac] 10 mg PO QDAY #30 tablet 10/22/21 Unknown Rx OLANZapine [Olanzapine] 10 mg PO BID #60 10/22/21 Unknown Rx hydrOXYzine PAMOATE [Vistaril] 50 mg PO BID PRN #60 capsule 10/22/21 Unknown Rx Albuterol Sulfate [Proair 90 mcg IH Q4HR PRN #2 aer.pow.ba 10/30/21 Unknown Rx Respiclick] Allergies Allergy/AdvReac Type Severity Reaction Status Date / Time No Known Allergies Allergy Verified 11/30/21 13:32 ED Review of Systems ROS: Stated complaint: ASTHMA Other details as noted in HPI Comment: All other systems reviewed and negative Constitutional: denies: chills, fever Eyes: denies: eye pain, eye discharge, vision change ENT: denies: ear pain, throat pain Respiratory: shortness of breath. denies: cough, wheezing Cardiovascular: denies: chest pain, palpitations Endocrine: no symptoms reported Gastrointestinal: denies: abdominal pain, nausea, diarrhea Genitourinary: denies: urgency, dysuria, discharge Musculoskeletal: denies: back pain, joint swelling, arthralgia Skin: denies: rash, lesions Neurological: denies: headache, weakness, paresthesias Psychiatric: denies: anxiety, depression Hematological/Lymphatic: denies: easy bleeding, easy bruising ED Past Medical Hx - Past Medical History Previous Medical History?: Yes Hx Hypertension: No Hx Asthma: Yes Additional medical history: anxiety, panic attacks - Surgical History Past Surgical History?: No - Social History Smoking Status: Never Smoker Substance Use Type: None - Medications Home Medications: Home Medications Medication Instructions Recorded Confirmed Last Taken Type FLUoxetine [PROzac] 10 mg PO QDAY #30 tablet 10/22/21 Unknown Rx OLANZapine [Olanzapine] 10 mg PO BID #60 10/22/21 Unknown Rx hydrOXYzine PAMOATE [Vistaril] 50 mg PO BID PRN #60 capsule 10/22/21 Unknown Rx Albuterol Sulfate [Proair 90 mcg IH Q4HR PRN #2 aer.pow.ba 10/30/21 Unknown Rx Respiclick] ED Physical Exam - General Limitations: No Limitations General appearance: alert, in no apparent distress - Head Head exam: Present: atraumatic, normocephalic - Eye Eye exam: Present: normal appearance, PERRL, EOMI - ENT ENT exam: Present: mucous membranes moist - Neck Neck exam: Present: normal inspection - Respiratory Respiratory exam: Present: normal lung sounds bilaterally, respiratory distress (mild respiratory distress ), wheezes, accessory muscle use - Cardiovascular Cardiovascular Exam: Present: normal rhythm, tachycardia. Absent: systolic murmur, diastolic murmur, rubs, gallop - GI/Abdominal GI/Abdominal exam: Present: soft, normal bowel sounds. Absent: distended, tenderness - Extremities Exam Extremities exam: Present: normal inspection - Back Exam Back exam: Present: normal inspection - Neurological Exam Neurological exam: Present: alert, oriented X3, CN II-XII intact. Absent: motor sensory deficit - Psychiatric Psychiatric exam: Present: normal affect, normal mood - Skin Skin exam: Present: warm, dry, intact, normal color. Absent: rash ED Course Vital Signs 11/30/21 11/30/21 11/30/21 13:25 13:39 13:43 Temperature 97.7 F Pulse Rate 129 H Pulse Rate [ Bilateral] Respiratory 20 22 Rate Respiratory Rate [Bilateral ] Blood Pressure 129/93 [Left] O2 Sat by Pulse 98 96 96 Oximetry 11/30/21 11/30/21 11/30/21 13:46 14:00 14:16 Temperature Pulse Rate Pulse Rate [ Bilateral] Respiratory Rate Respiratory Rate [Bilateral ] Blood Pressure [Left] O2 Sat by Pulse 96 94 94 Oximetry 11/30/21 11/30/21 11/30/21 14:20 14:30 14:46 Temperature Pulse Rate Pulse Rate [ 102 H Bilateral] Respiratory Rate Respiratory 20 Rate [Bilateral ] Blood Pressure [Left] O2 Sat by Pulse 100 100 Oximetry 11/30/21 11/30/21 15:00 15:16 Temperature Pulse Rate Pulse Rate [ Bilateral] Respiratory Rate Respiratory Rate [Bilateral ] Blood Pressure [Left] O2 Sat by Pulse 100 99 Oximetry ED Medical Decision Making - Radiology Data Radiology results: report reviewed - Medical Decision Making Patient received an hour-long continuous breathing treatment, IV steroids, IV magnesium Patient's respiratory status improved slightly. Patient has less use of accessory muscles but states she does not feel well enough to go home and is actually scared to go home. Critical Care Time: Yes Critical care time in (mins) excluding proc time.: 35 Critical care attestation.: If time is entered above; I have spent that time in minutes in the direct care of this critically ill patient, excluding procedure time. ED Disposition Clinical Impression: Asthma exacerbation Disposition: ADMITTED INPATIENT Is pt being admited?: No Does the pt Need Aspirin: No Condition: Stable
--- NOTE | 2021-11-30 15:35 | XRay Report ---
CHEST 1 VIEW INDICATION: sob. COMPARISON: CTA chest from 10/30/2021 FINDINGS: SUPPORT DEVICES: None. HEART: Within normal limits. LUNGS/PLEURA: No acute air space or interstitial disease. ADDITIONAL FINDINGS: None. IMPRESSION: 1. No acute findings. Signer Name: Peter Joseph MD Signed: 11/30/2021 3:31 PM Workstation Name: [id number]
[2021-11-30 17:27] LABS: Hematocrit 33.3 % (30.3-42.9); Hemoglobin 10.2 gm/dl (10.1-14.3); Mean Corpuscular HGB Conc 31 % (30-34); Mean Corpuscular Volume 73 fl (79-97); Platelet Count 401 K/mm3 (140-440); Red Blood Count 4.58 M/mm3 (3.65-5.03)
[2021-11-30 17:28] LABS: Blood Urea Nitrogen 9 mg/dL (7-17); Calcium 9.6 mg/dL (8.4-10.2); Hemolysis Index 3
[2021-11-30 17:35] LABS: BUN/Creatinine Ratio 13
[2021-11-30 17:47] LABS: Red Cell Distribution Width 20.3 % (13.2-15.2)
[2021-11-30 19:09] LABS: Eosinophils % (Manual) 0 % (0.0-4.3); Monocytes % (Manual) 0 % (0.0-7.3); Total Cells Counted 100
[2021-11-30 19:29] LABS: Anisocytosis 1+; Ovalocytes 1+; Platelet Estimate Consistent w Auto
[2021-11-30] MEDS ORDERED: NON-FORMULARY EACH (Albuterol Sulfate [Proair Respiclick] 90 MCG Aer.Pow.Ba) IH PRN (20:34)
--- NOTE | 2021-11-30 20:34 | History and Physical Report ---
History of Present Illness Date of examination: 11/30/21 Date of admission: November 30, 2021 Chief complaint: Severe wheezing since a.m. History of present illness: 21-year-old -[place] female with history of asthma comes in for severe wheezing for the last 2 days not responding to home inhalers and nebulizers. Patient is exposed to a pet. Patient is on Singulair. Patient had similar episodes in the past and was hospitalized. Intubation status not known. No hypertension. Has history of anxiety attacks and panic attacks. No fever or chills. - Past Medical History --Previous Medical History?: Yes --Asthma: Yes --Additional medical history: anxiety, panic attacks - Surgical History --Past Surgical History?: No - Social History --Smoking Status: Never Smoker --Substance Use Type: None -Family history --Htn - Medications --Home Medications: Home Medications Medication Instructions Recorded Confirmed Last Taken Type FLUoxetine [PROzac] 10 mg PO QDAY #30 tablet 10/22/21 Unknown Rx OLANZapine [Olanzapine] 10 mg PO BID #60 10/22/21 Unknown Rx hydrOXYzine PAMOATE [Vistaril] 50 mg PO BID PRN #60 capsule 10/22/21 Unknown Rx Albuterol Sulfate [Proair 90 mcg IH Q4HR PRN #2 aer.pow.ba 10/30/21 Unknown Rx Respiclick] Review of Systems ROS: Stated complaint: ASTHMA Other details as noted in HPI Comment: All other systems reviewed and negative Constitutional: denies: chills, fever Eyes: denies: eye pain, eye discharge, vision change ENT: denies: ear pain, throat pain Respiratory: shortness of breath. denies: cough, wheezing Cardiovascular: denies: chest pain, palpitations Endocrine: no symptoms reported Gastrointestinal: denies: abdominal pain, nausea, diarrhea Genitourinary: denies: urgency, dysuria, discharge Musculoskeletal: denies: back pain, joint swelling, arthralgia Skin: denies: rash, lesions Neurological: denies: headache, weakness, paresthesias Psychiatric: denies: anxiety, depression Hematological/Lymphatic: denies: easy bleeding, easy bruising Medications and Allergies Allergies Allergy/AdvReac Type Severity Reaction Status Date / Time No Known Allergies Allergy Verified 11/30/21 13:32 Home Medications Medication Instructions Recorded Confirmed Last Taken Type FLUoxetine [PROzac] 10 mg PO QDAY #30 tablet 10/22/21 Unknown Rx OLANZapine [Olanzapine] 10 mg PO BID #60 10/22/21 Unknown Rx hydrOXYzine PAMOATE [Vistaril] 50 mg PO BID PRN #60 capsule 10/22/21 Unknown Rx Albuterol Sulfate [Proair 90 mcg IH Q4HR PRN #2 aer.pow.ba 10/30/21 Unknown Rx Respiclick] Exam - Constitutional Vitals: Temp Pulse Resp BP Pulse Ox 97.7 F 116 H 18 132/67 97 11/30/21 13:25 11/30/21 19:31 11/30/21 19:31 11/30/21 19:31 11/30/21 19:31 General appearance: Present: no acute distress, well-nourished - EENT Eyes: Present: PERRL ENT: hearing intact, clear oral mucosa - Neck Neck: Present: supple, normal ROM - Respiratory Respiratory effort: normal Respiratory: bilateral: diminished, rhonchi, wheezing - Cardiovascular Heart rate: 78 Rhythm: regular Heart Sounds: Present: S1 & S2. Absent: rub, click - Extremities Extremities: pulses symmetrical, No edema Peripheral Pulses: within normal limits - Abdominal General gastrointestinal: Present: soft, non-tender, non-distended, normal bowel sounds Female genitourinary: Present: normal - Integumentary Integumentary: Present: clear, warm, dry - Musculoskeletal Musculoskeletal: gait normal, strength equal bilaterally - Psychiatric Psychiatric: appropriate mood/affect, intact judgment & insight - Neurologic Neurologic: CNII-XII intact, moves all extremities - Allied Health Allied health notes reviewed: nursing, case management Results - Labs CBC & Chem 7: 11/30/21 16:46 11/30/21 16:46 Labs: Laboratory Last Values WBC 8.6 K/mm3 (4.5-11.0) 11/30/21 16:46 RBC 4.58 M/mm3 (3.65-5.03) 11/30/21 16:46 Hgb 10.2 gm/dl (10.1-14.3) 11/30/21 16:46 Hct 33.3 % (30.3-42.9) 11/30/21 16:46 MCV 73 fl (79-97) L 11/30/21 16:46 MCH 22 pg (28-32) L 11/30/21 16:46 MCHC 31 % (30-34) 11/30/21 16:46 RDW 20.3 % (13.2-15.2) H 11/30/21 16:46 Plt Count 401 K/mm3 (140-440) 11/30/21 16:46 Add Manual Diff Complete 11/30/21 16:46 Total Counted 100 11/30/21 16:46 Seg Neutrophils % Cartographic Aide 11/30/21 16:46 Seg Neuts % (Manual) 98.0 % (40.0-70.0) H 11/30/21 16:46 Band Neutrophils % 0 % 11/30/21 16:46 Lymphocytes % (Manual) 1.0 % (13.4-35.0) L 11/30/21 16:46 Reactive Lymphs % (Man) 0 % 11/30/21 16:46 Monocytes % (Manual) 0 % (0.0-7.3) 11/30/21 16:46 Eosinophils % (Manual) 0 % (0.0-4.3) 11/30/21 16:46 Basophils % (Manual) 1.0 % (0.0-1.8) 11/30/21 16:46 Metamyelocytes % 0 % 11/30/21 16:46 Myelocytes % 0 % 11/30/21 16:46 Promyelocytes % 0 % 11/30/21 16:46 Blast Cells % 0 % 11/30/21 16:46 Nucleated RBC % Not Reportable 11/30/21 16:46 Seg Neutrophils # Man 8.4 K/mm3 (1.8-7.7) H 11/30/21 16:46 Band Neutrophils # 0.0 K/mm3 11/30/21 16:46 Lymphocytes # (Manual) 0.1 K/mm3 (1.2-5.4) L 11/30/21 16:46 Abs React Lymphs (Man) 0.0 K/mm3 11/30/21 16:46 Monocytes # (Manual) 0.0 K/mm3 (0.0-0.8) 11/30/21 16:46 Eosinophils # (Manual) 0.0 K/mm3 (0.0-0.4) 11/30/21 16:46 Basophils # (Manual) 0.1 K/mm3 (0.0-0.1) 11/30/21 16:46 Metamyelocytes # 0.0 K/mm3 11/30/21 16:46 Myelocytes # 0.0 K/mm3 11/30/21 16:46 Promyelocytes # 0.0 K/mm3 11/30/21 16:46 Blast Cells # 0.0 K/mm3 11/30/21 16:46 WBC Morphology Not Reportable 11/30/21 16:46 Hypersegmented Neuts Not Reportable 11/30/21 16:46 Hyposegmented Neuts Not Reportable 11/30/21 16:46 Hypogranular Neuts Not Reportable 11/30/21 16:46 Smudge Cells Not Reportable 11/30/21 16:46 Toxic Granulation Not Reportable 11/30/21 16:46 Toxic Vacuolation Not Reportable 11/30/21 16:46 Dohle Bodies Not Reportable 11/30/21 16:46 Pelger-Huet Anomaly Not Reportable 11/30/21 16:46 Anna Rods Not Reportable 11/30/21 16:46 Platelet Estimate Consistent w auto 11/30/21 16:46 Clumped Platelets Not Reportable 11/30/21 16:46 Plt Clumps, EDTA Not Reportable 11/30/21 16:46 Large Platelets Not Reportable 11/30/21 16:46 Giant Platelets Not Reportable 11/30/21 16:46 Platelet Satelliting Not Reportable 11/30/21 16:46 Plt Morphology Comment Not Reportable 11/30/21 16:46 RBC Morphology Not Reportable 11/30/21 16:46 Dimorphic RBCs Not Reportable 11/30/21 16:46 Polychromasia Not Reportable 11/30/21 16:46 Hypochromasia Not Reportable 11/30/21 16:46 Poikilocytosis Not Reportable 11/30/21 16:46 Anisocytosis 1+ 11/30/21 16:46 Microcytosis Not Reportable 11/30/21 16:46 Macrocytosis Not Reportable 11/30/21 16:46 Spherocytes Not Reportable 11/30/21 16:46 Pappenheimer Bodies Not Reportable 11/30/21 16:46 Sickle Cells Not Reportable 11/30/21 16:46 Target Cells Not Reportable 11/30/21 16:46 Tear Drop Cells Not Reportable 11/30/21 16:46 Ovalocytes 1+ 11/30/21 16:46 Helmet Cells Not Reportable 11/30/21 16:46 Morales-Slidell Bodies Not Reportable 11/30/21 16:46 [place] Rings Not Reportable 11/30/21 16:46 Mati Cells Not Reportable 11/30/21 16:46 Bite Cells Not Reportable 11/30/21 16:46 Crenated Cell Not Reportable 11/30/21 16:46 Elliptocytes Not Reportable 11/30/21 16:46 Acanthocytes (Spur) Not Reportable 11/30/21 16:46 Rouleaux Not Reportable 11/30/21 16:46 Hemoglobin C Crystals Not Reportable 11/30/21 16:46 Schistocytes Not Reportable 11/30/21 16:46 Malaria parasites Not Reportable 11/30/21 16:46 Daryl Bodies Not Reportable 11/30/21 16:46 Hem Pathologist Commnt No 11/30/21 16:46 Sodium 141 mmol/L (137-145) 11/30/21 16:46 Potassium 3.8 mmol/L (3.6-5.0) 11/30/21 16:46 Chloride 103.2 mmol/L (98-107) 11/30/21 16:46 Carbon Dioxide 21 mmol/L (22-30) L 11/30/21 16:46 Anion Gap 21 mmol/L 11/30/21 16:46 BUN 9 mg/dL (7-17) 11/30/21 16:46 Creatinine 0.7 mg/dL (0.6-1.2) 11/30/21 16:46 Estimated GFR > 60 ml/min 11/30/21 16:46 BUN/Creatinine Ratio 13 % 11/30/21 16:46 Glucose 147 mg/dL (65-100) H 11/30/21 16:46 Calcium 9.6 mg/dL (8.4-10.2) 11/30/21 16:46 Short CBC 11/30/21 Range/Units 16:46 WBC 8.6 (4.5-11.0) K/mm3 Hgb 10.2 (10.1-14.3) gm/dl Hct 33.3 (30.3-42.9) % Plt Count 401 (140-440) K/mm3 BMP 11/30/21 16:46 Sodium 141 Potassium 3.8 Chloride 103.2 Carbon Dioxide 21 L BUN 9 Creatinine 0.7 Glucose 147 H Calcium 9.6 Assessment and Plan Advance Directives: Yes (Full code) VTE prophylaxis?: Chemical Plan of care discussed with patient/family: Yes - Patient Problems (1) Acute respiratory failure with hypoxia Current Visit: Yes Status: Acute Plan to address problem: Patient was initially hypoxic Improved with oxygen supplementation Continue to be wheezing (2) Asthma exacerbation Current Visit: Yes Status: Acute Qualifiers: Asthma severity: severe Plan to address problem: Patient initiated on IV Solu-Medrol, duo nebs [id number] and as needed and Singulair and IV antibiotics (3) DVT prophylaxis Current Visit: Yes Status: Acute Plan to address problem: On anticoagulation GI prophylaxis (4) Advance care planning Current Visit: Yes Status: Acute Plan to address problem: Disease education conducted, care plan discussed, diagnosis discussed, prognosis discussed. Patient is full code. Patient acknowledges understanding and agreement with care plan. +30 minutes.
[2021-11-30] MEDS ORDERED: ACETAMINOPHEN 325 MG TAB PO PRN (20:35)
[2021-11-30] MEDS ORDERED: MORPHINE 2 MG/1 ML INJ IV PRN (20:35)
[2021-11-30] MEDS ORDERED: ONDANSETRON 4 MG/2 ML INJ IV PRN (20:35)
[2021-11-30] MEDS ORDERED: oxyCODONE /ACETAMINOPHEN 5-325MG TAB PO PRN (20:35)
[2021-11-30] MEDS ORDERED: METOCLOPRAMIDE 10 MG/2 ML INJ IV PRN (20:35)
[2021-11-30] MEDS ORDERED: IPRATROPIUM/ALBUTEROL SULFATE 3 ML AMPUL.NEB IH PRN (20:39)
[2021-11-30] MEDS ORDERED: ALBUTEROL 2.5 MG/3 ML NEBU IH PRN (20:39)
[2021-11-30] MEDS: FLUoxetine 10 MG TAB PO SCH (21:29)
[2021-11-30] MEDS: SODIUM CHLORIDE 0.9% 1000 ML 1,000 ML IV SCH (23:31)
[2021-11-30] MEDS: HEPARIN 5,000 UNIT/1 ML VIAL SUB-Q SCH (23:31)
[2021-11-30] MEDS: MONTELUKAST 10 MG TAB PO SCH (23:32)
[2021-11-30] MEDS: methylPREDNISolone Sod Succinate 125 MG/2 ML INJ IV SCH (23:33)
[2021-12-01] MEDS: methylPREDNISolone Sod Succinate 125 MG/2 ML INJ IV SCH ×3 (05:35→21:00)
[2021-12-01] MEDS: IPRATROPIUM/ALBUTEROL SULFATE 3 ML AMPUL.NEB IH SCH ×3 (08:01→19:55)
[2021-12-01] MEDS: HEPARIN 5,000 UNIT/1 ML VIAL SUB-Q SCH ×2 (09:39→21:00)
[2021-12-01] MEDS: FLUoxetine 10 MG TAB PO SCH (09:39)
[2021-12-01] MEDS: SODIUM CHLORIDE 0.9% 1000 ML 1,000 ML IV SCH (15:05)
--- NOTE | 2021-12-01 15:26 | Progress Note ---
Assessment and Plan - Patient Problems (1) Acute respiratory failure with hypoxia Current Visit: Yes Status: Acute Plan to address problem: Secondary to acute asthma. Patient has several triggers in the house including pets and aroma from incidence of something to make the house improved. Patient denies any productive cough. Denies any fever chills nausea vomiting. Denies sick contacts. (2) Asthma exacerbation Current Visit: Yes Status: Acute Qualifiers: Asthma severity: severe Plan to address problem: Patient acute asthma exacerbation. Failed outpatient nebulizers for now however improving in less than 24-hour therapy Continue IV steroids. Will require steroid taper upon discharge. Continue oxygen supplementation. Continue nebulizers. Continue empiric antibiotics now and upon discharge. Anticipated discharge in a.m. (3) DVT prophylaxis Current Visit: Yes Status: Acute Subjective Date of service: 12/01/21 Principal diagnosis: Acute respiratory failure Interval history: Patient 21-year-old female with a history of asthma presents to the ED after greater than 24-hour period of not responding to home nebs. Patient is on Singulair at home. Was admitted given serial steroids. Empiric antibiotics. Nebulizers and O2. Patient is still wheezing states she is short of breath but has improved. Patient coughing has improved. Oxygenation is stable. Still wheezing but has had improvement since she has gotten here a little less than 24 hours. Anticipated discharge in a.m. Objective - Constitutional Vitals: Vital Signs - 12hr 12/01/21 12/01/21 12/01/21 03:56 05:40 08:04 Temperature 97.5 F L Pulse Rate 99 H Pulse Rate [ 117 H Bilateral] Respiratory 18 Rate Respiratory 16 Rate [Bilateral ] Blood Pressure Blood Pressure 117/60 [Left] O2 Sat by Pulse 96 95 Oximetry 12/01/21 12/01/21 12/01/21 10:00 11:27 12:33 Temperature Pulse Rate 114 H Pulse Rate [ 116 H Bilateral] Respiratory Rate Respiratory 14 Rate [Bilateral ] Blood Pressure 101/63 Blood Pressure [Left] O2 Sat by Pulse 98 94 Oximetry General appearance: Present: no acute distress, well-nourished - EENT Eyes: PERRL, EOM intact ENT: hearing intact, clear oral mucosa Ears: bilateral: normal - Neck Neck: supple, normal ROM - Respiratory Respiratory effort: normal Respiratory: bilateral: wheezing (Bilateral. Improved air entry.) - Breasts Breasts: normal - Cardiovascular Rhythm: regular Heart Sounds: Present: S1 & S2. Absent: gallop, rub Extremities: pulses intact, No edema, normal color, Full ROM - Gastrointestinal General gastrointestinal: Present: soft, non-tender, non-distended, normal bowel sounds - Genitourinary Female genitourinary: normal - Integumentary Integumentary: clear, warm, dry - Musculoskeletal Musculoskeletal: 1, strength equal bilaterally - Neurologic Neurologic: moves all extremities - Psychiatric Psychiatric: memory intact, appropriate mood/affect, intact judgment & insight - Labs CBC & Chem 7: 11/30/21 16:46 11/30/21 16:46 Labs: Abnormal lab results 11/30/21 11/30/21 Range/Units 16:46 16:46 MCV 73 L (79-97) fl MCH 22 L (28-32) pg RDW 20.3 H (13.2-15.2) % Seg Neuts % (Manual) 98.0 H (40.0-70.0) % Lymphocytes % (Manual) 1.0 L (13.4-35.0) % Seg Neutrophils # Man 8.4 H (1.8-7.7) K/mm3 Lymphocytes # (Manual) 0.1 L (1.2-5.4) K/mm3 Carbon Dioxide 21 L (22-30) mmol/L Glucose 147 H (65-100) mg/dL
[2021-12-01] MEDS: MONTELUKAST 10 MG TAB PO SCH (21:00)
[2021-12-01 23:31] LABS: Hematocrit 28.3 % (30.3-42.9); Hemoglobin 8.8 gm/dl (10.1-14.3); Mean Corpuscular HGB Conc 31 % (30-34); Mean Corpuscular Volume 73 fl (79-97); Platelet Count 384 K/mm3 (140-440); Red Blood Count 3.89 M/mm3 (3.65-5.03)
[2021-12-01 23:36] LABS: Red Cell Distribution Width 20.6 % (13.2-15.2)
[2021-12-02 00:05] LABS: Alanine Aminotransferase 10 units/L (7-56); Albumin 4.1 g/dL (3.9-5); Blood Urea Nitrogen 12 mg/dL (7-17); Calcium 9.3 mg/dL (8.4-10.2); Hemolysis Index 17
[2021-12-02 00:18] LABS: BUN/Creatinine Ratio 17
[2021-12-02] MEDS: methylPREDNISolone Sod Succinate 125 MG/2 ML INJ IV SCH ×3 (06:37→21:05)
[2021-12-02] MEDS: SODIUM CHLORIDE 0.9% 1000 ML 1,000 ML IV SCH (06:38)
[2021-12-02] MEDS: IPRATROPIUM/ALBUTEROL SULFATE 3 ML AMPUL.NEB IH SCH ×3 (09:35→21:01)
[2021-12-02] MEDS: HEPARIN 5,000 UNIT/1 ML VIAL SUB-Q SCH ×2 (10:00→21:05)
[2021-12-02 10:40] LABS: Monocytes # (Auto) 0.3 K/mm3 (0.0-0.8); Monocytes % (Auto) 1.6 % (0.0-7.3)
--- NOTE | 2021-12-02 10:54 | Discharge Summary ---
Providers - Providers Date of Admission: 11/30/21 20:35 Date of discharge: 12/02/21 Attending physician: DAMIR FLAHERTY MD Primary care physician: [facility] Hospitalization Reason for admission: Acute hypoxic respiratory failure, acute asthma exacerbation Condition: Stable Pertinent studies: Reviewed. Procedures: None. Hospital course: Patient is a 21-year-old female past medical history of asthma who presented to the emergency department after having limited response to home nebulizers over 24 hours duration. The patient endorses taking Singulair at home. In the emergency department she was started on IV steroids, nebulizers, and empiric antibiotics due to concerns for infectious etiology of acute hypoxic respiratory failure. Patient endorses having improved symptoms. She admits to utilizing nasal cannula at home2 L. The patient will continue Levaquin 750 mg every 24 hours for total of 5-day course. The patient will be discharged on p.o. prednisone 20 mg daily for total of 5-day course. The patient has been counseled about avoiding known triggers, the patient expresses understanding. The patient will follow up with her primary care upon discharge. Patient is medically clear for discharge. Disposition: 01 HOME / SELF CARE / HOMELESS Final Discharge Diagnosis (Prints w/discharge instructions): Acute hypoxic respiratory failure, acute asthma exacerbation, leukocytosis secondary to steroid administration, hyperglycemia Time spent for discharge: 45 min Core Measure Documentation - Palliative Care Palliative Care/ Comfort Measures: Not Applicable - Core Measures Any of the following diagnoses?: none Exam - Constitutional Vitals: Temp Pulse Resp BP Pulse Ox 98.5 F 105 H 18 128/65 98 12/01/21 16:24 12/02/21 09:35 12/02/21 09:35 12/01/21 16:24 12/02/21 09:53 General appearance: Present: no acute distress, well-nourished - EENT Eyes: Present: PERRL, EOM intact ENT: hearing intact, clear oral mucosa, dentition normal - Neck Neck: Present: supple, normal ROM - Respiratory Respiratory effort: normal Respiratory: bilateral: diminished - Cardiovascular Rhythm: regular Heart Sounds: Present: S1 & S2 - Extremities Extremities: no ischemia, pulses intact, pulses symmetrical, No edema, normal temperature, normal color, Full ROM Peripheral Pulses: within normal limits - Abdominal General gastrointestinal: Present: soft, non-tender, non-distended, normal bowel sounds Female genitourinary: Present: deferred - Rectal Rectal Exam: deferred - Integumentary Integumentary: Present: clear, warm, dry - Musculoskeletal Musculoskeletal: strength equal bilaterally - Psychiatric Psychiatric: appropriate mood/affect, intact judgment & insight, memory intact, cooperative - Neurologic Neurologic: CNII-XII intact, moves all extremities - Allied Health Allied health notes reviewed: nursing Plan Activity: advance as tolerated Diet: regular Additional Instructions: Patient is a 21-year-old female past medical history of asthma who presented to the emergency department after having limited response to home nebulizers over 24 hours duration. The patient endorses taking Singulair at home. In the emergency department she was started on IV steroids, nebulizers, and empiric antibiotics due to concerns for infectious etiology of acute hypoxic respiratory failure. Patient endorses having improved symptoms. She admits to utilizing nasal cannula at home2 L. The patient will continue Levaquin 750 mg every 24 hours for total of 5-day course. The patient will be discharged on p.o. prednisone 20 mg daily for total of 5-day course. The patient has been counseled about avoiding known triggers, the patient expresses understanding. The patient will follow up with her primary care upon discharge. Patient is medically clear for discharge. Care Plan Goals: Patient is medically clear for discharge. Assessment: Patient is a 21-year-old female past medical history of asthma who presented to the emergency department after having limited response to home nebulizers over 24 hours duration. The patient endorses taking Singulair at home. In the emergency department she was started on IV steroids, nebulizers, and empiric antibiotics due to concerns for infectious etiology of acute hypoxic respiratory failure. Patient endorses having improved symptoms. She admits to utilizing nasal cannula at home2 L. The patient will continue Levaquin 750 mg every 24 hours for total of 5-day course. The patient will be discharged on p.o. prednisone 20 mg daily for total of 5-day course. The patient has been counseled about avoiding known triggers, the patient expresses understanding. The patient will follow up with her primary care upon discharge. Patient is medically clear for discharge. Follow up with: CHAUNCEY JIMENEZ MD [Primary Care Provider] - 3-5 Days RAUL ESCALANTE MD [Staff Physician] - 14 Days Forms: Work/School Release Form
[2021-12-02] MEDS: FLUoxetine 10 MG TAB PO SCH (11:00)
[2021-12-02 11:04] LABS: Band Neutrophils # (Manual) 0.2 K/mm3; Basophils % (Manual) 0 % (0.0-1.8); Eosinophils % (Manual) 0 % (0.0-4.3); Monocytes % (Manual) 0 % (0.0-7.3); Total Cells Counted 100
[2021-12-02 11:05] LABS: Burr Cells Few; Platelet Estimate Consistent w Auto; Target Cells Few
[2021-12-02] MEDS: levoFLOXacin 500 MG TAB PO SCH (11:33)
[2021-12-02] MEDS: MONTELUKAST 10 MG TAB PO SCH (21:05)
[2021-12-03] MEDS: methylPREDNISolone Sod Succinate 125 MG/2 ML INJ IV SCH (05:24)
[2021-12-03 06:14] VITALS: BP 115/56
[2021-12-03 09:11] LABS: Hematocrit 29.2 % (30.3-42.9); Hemoglobin 8.9 gm/dl (10.1-14.3); Mean Corpuscular HGB Conc 31 % (30-34); Mean Corpuscular Volume 73 fl (79-97); Platelet Count 432 K/mm3 (140-440); Red Blood Count 4.01 M/mm3 (3.65-5.03)
[2021-12-03 09:16] LABS: Red Cell Distribution Width 20.9 % (13.2-15.2)
[2021-12-03 09:27] LABS: BUN/Creatinine Ratio 30; Blood Urea Nitrogen 12 mg/dL (7-17); Hemolysis Index 0
[2021-12-03] MEDS: IPRATROPIUM/ALBUTEROL SULFATE 3 ML AMPUL.NEB IH SCH (09:54)
[2021-12-03] MEDS: FLUoxetine 10 MG TAB PO SCH (10:00)
[2021-12-03] MEDS: HEPARIN 5,000 UNIT/1 ML VIAL SUB-Q SCH (10:00)
[2021-12-03] MEDS: levoFLOXacin 500 MG TAB PO SCH (10:00)
[2021-12-03 11:46] LABS: Anisocytosis 1+; Basophils % (Manual) 0 % (0.0-1.8); Eosinophils % (Manual) 0 % (0.0-4.3); Hypochromasia 1+; Monocytes % (Manual) 0 % (0.0-7.3); Platelet Estimate Consistent w Auto; Total Cells Counted 100
== END 2021-12-03 13:19 | disposition home or self-care (01) | DRG 189 ==
LOC: ED 13:22 → 3A 20:35
PROVIDERS: ADMIT Internal Medicine; ATTEND Student in an Organized Health Care Education/Training Program
DX: J96.01 Acute respiratory failure with hypoxia (principal); J45.901 Unspecified asthma with (acute) exacerbation; R73.9 Hyperglycemia, unspecified; D72.829 Elevated white blood cell count, unspecified
CPT/HCPCS: 36415; 71045; 80048; 80053; 82962; 84703; 85007; 85025; 94640; 94644; 94760; G0378; Q0162; J1100; J1644; J1956; J2270; J2930; J3475; J7030